=== PATIENT | male | born 1945 | race Caucasian/White ===

== ENCOUNTER → 2017-01-12 | Outpatient (CLI) | payer OTHER | LOC: FIMAGING 17:25 | PROVIDERS: ATTEND Internal Medicine | DX: N20.0 Calculus of kidney (principal); K59.00 Constipation, unspecified ==

== ENCOUNTER 2017-05-18 20:46 | Observation (INO) | payer OTHER ==
--- NOTE | 2017-05-18 20:55 | CPEKG ---
Heart Rate: 51 RR Interval: 1176 P-R Interval: 204 QRSD Interval: 100 QT Interval: 440 QTC Interval: 406 P [place]: 6 QRS [place]: 51 T Wave [place]: 52 EKG Severity - BORDERLINE ECG - EKG Impression: SINUS RHYTHM EKG Impression: BORDERLINE INFERIOR Q WAVES Electronically Signed By: Lily Diaz 19-May-2017 00:29:45
--- NOTE | 2017-05-18 20:59 | EDPHY ---
HPI/HX/ROS/PE/MDM Narrative: CHIEF COMPLAINT: Chest pain HISTORY OF PRESENT ILLNESS: This patient is a 71 year old male complaining of chest pain onset 30 minutes prior to arrival. He states "this is either the worst heartburn I've ever had or something else". The discomfort began while he was reading a book. It is located across the base of his chest, and is sharp and stabbing. He rates his initial discomfort at 7/10 in severity. This has resolved to 5/10 at this time. He endorses some pain at the right side of his neck, and feels he is breathing more shallowly than usual. He does not feel short of breath at rest. He felt lightheaded, but denies any syncope. He has never had similar symptoms in the past. No history of heartburn. He denies history of CAD, stent placements, or other cardiac surgery. No personal history of hypertension, hyperlipidemia, diabetes. Family history positive for CO in father at age 72. The patient does take a preventative daily 81mg aspirin. No fever, chills, palpitations, vomiting , diarrhea, urinary complaints, headache. REVIEW OF SYSTEMS: Aside from elements discussed in the HPI, a comprehensive 10-point review of systems was reviewed and is negative. PAST MEDICAL HISTORY: Kidney stones. Sleep apnea. 81mg ASA and multivitamin daily. SOCIAL HISTORY: Former smoker, quit 30 years ago. Friends at bedside. Lives in [place]. Retired. VITAL SIGNS: Reviewed by me GENERAL: Well-developed, well-nourished, resting comfortably in no respiratory distress. HEENT: Atraumatic. Eyes: No icterus, no injection. Mouth: moist mucous membranes. No erythema or lesions. Neck: supple with no adenopathy. LUNGS: Clear to auscultation bilaterally, no wheezes, rhonchi or rales. CARDIAC: Regular rate and rhythm, no rubs, murmurs or gallops. ABDOMEN: Epigastric and right upper quadrant tenderness. Soft, nondistended, bowel sounds normal. BACK: No CVA tenderness. EXTREMITIES: No trauma. No edema. Range of motion is normal throughout. NEURO: Alert and oriented, grossly nonfocal. SKIN: Warm and dry, no rash. PSYCHIATRIC: Normal mentation, no agitation. Portions of this note were transcribed by a medical fee clerk. I personally performed a history, physical exam, medical decision making, and confirmed accuracy of information the transcribed note. ED Course: 71 y/o male presents with chest pain onset thirty minutes prior to arrival. Exam reveals epigastric and right upper quadrant tenderness. Plan for chest x- ray, EKG, labs including CBC, chemistries, troponin, liver/lipase. Plan to administer 40mg IV Protonix. 21:35 Reviewed chest x-ray. Diffuse interstitial markings. Laboratory studies unremarkable. Troponin negative. 22:10 Reassessed patient. He is feeling mildly better following Protonix administration, but continues to lie in bed holding his upper right abdominal region. Plan for CT abdomen/pelvis for further evaluation. Plan to admit for further evaluation. 22:[address] Sevilla, radiologist. CT negative for acute processes. Evidence of constipation. 22:[address] Alberto, hospitalist. He accepts admission for cardiac r/o vs GI. MDM: After history and physical examination, the differential for chest pain was considered, including but not limited to, myocardial ischemia, acute coronary syndrome, pulmonary embolus, chest wall pain, pleural inflammation and pulmonary infectious causes. After obtaining the patient's history and performing an examination, differential diagnosis considered included but was not limited to appendicitis, cholecystitis, gastritis, pancreatitis, kidney stones, urinary tract infections and other causes. - Data Points Imaging Results: Imaging Impressions Chest X-Ray 05/18/17 21:07 Impression: Hypoventilation and bibasilar atelectasis. Otherwise negative. Imaging: I viewed and interpreted images myself Laboratory Results: Laboratory Results 05/18/17 20:55 05/18/17 20:55 05/18/17 05/18/17 20:55 20:55 WBC 5.68 10^3/uL 10^3/uL (3.80-9.50) RBC 5.24 10^6/uL 10^6/uL (4.40-6.38) Hgb 16.6 g/dL g/dL (13.7-17.5) Hct 49.2 % % (40.0-51.0) MCV 93.9 fL fL (81.5-99.8) MCH 31.7 pg pg (27.9-34.1) MCHC 33.7 g/dL g/dL (32.4-36.7) RDW 12.1 % % (11.5-15.2) Plt Count 198 10^3/uL 10^3/uL (150-400) MPV 10.9 fL fL (8.7-11.7) Neut % (Auto) 52.5 % % (39.3-74.2) Lymph % (Auto) 31.3 % % (15.0-45.0) [place] % (Auto) 9.9 % % (4.5-13.0) Eos % (Auto) 5.1 % % (0.6-7.6) Baso % (Auto) 1.2 % % (0.3-1.7) Nucleat RBC Rel Count 0.0 % % (0.0-0.2) Absolute Neuts (auto) 2.98 10^3/uL 10^3/uL (1.70-6.50) Absolute Lymphs (auto) 1.78 10^3/uL 10^3/uL (1.00-3.00) Absolute Monos (auto) 0.56 10^3/uL 10^3/uL (0.30-0.80) Absolute Eos (auto) 0.29 10^3/uL 10^3/uL (0.03-0.40) Absolute Basos (auto) 0.07 10^3/uL 10^3/uL (0.02-0.10) Absolute Nucleated RBC 0.00 10^3/uL 10^3/uL (0-0.01) Immature Gran % 0.0 % % (0.0-1.1) Immature Gran # 0.00 10^3/uL 10^3/uL (0.00-0.10) Sodium 139 mEq/L mEq/L (135-145) Potassium 4.1 mEq/L mEq/L (3.5-5.2) Chloride 102 mEq/L mEq/L (97-110) Carbon Dioxide 22 mEq/l mEq/l (22-31) Anion Gap 15 mEq/L mEq/L (8-16) BUN 20 mg/dL mg/dL (7-23) Creatinine 0.9 mg/dL mg/dL (0.7-1.3) Estimated GFR > 60 Glucose 96 mg/dL mg/dL (70-100) Calcium 9.7 mg/dL mg/dL (8.5-10.4) Total Bilirubin 0.9 mg/dL mg/dL (0.1-1.4) Conjugated Bilirubin 0.5 mg/dL mg/dL (0.0-0.5) Unconjugated Bilirubin 0.4 mg/dL mg/dL (0.0-1.1) AST 31 IU/L IU/L (17-59) ALT 21 IU/L IU/L (21-72) Alkaline Phosphatase 80 IU/L IU/L (38-126) Troponin I < 0.012 ng/mL ng/mL (0.000-0.034) Total Protein 7.6 g/dL g/dL (6.3-8.2) Albumin 4.5 g/dL g/dL (3.5-5.0) Lipase 126 IU/L IU/L (23-300) Medications Given: Discontinued Medications Pantoprazole Sodium (Protonix) 40 mg IVP EDNOW ONE Stop: 05/18/17 21:37 Last Admin: 05/18/17 21:41 Dose: 40 mg General Time Seen by Provider: 05/18/17 20:51 Initial Vital Signs: Initial Vital Signs Temperature (C) 36.4 C 05/18/17 20:52 Heart Rate 52 L 05/18/17 20:52 Respiratory Rate 16 05/18/17 20:52 Blood Pressure 177/101 H 05/18/17 20:52 O2 Sat (%) 97 05/18/17 20:52 O2 Delivery Mode Room Air Allergies/Adverse Reactions: No Known Allergies Allergy (Verified 08/10/15 12:58) Home Medications: Medication Instructions Recorded Aspirin [Aspirin 81mg (*)] 81 mg PO DAILY 03/30/15 Herbals/Supplements -Info Only 1 ea PO DAILY 08/10/15 Multivitamins [Multivitamin (*)] 1 each PO DAILY 08/10/15 Departure - Departure Disposition: [facility] Acute Clinical Impression: Epigastric pain, Nausea, Lightheadedness Condition: Fair Report Scribed for: Lily Diaz Report Scribed by: Lima Perez Date of Report: 05/18/17 Time of Report: 20:59
[2017-05-18 21:13] LABS: PLATELET COUNT 198 10^3/uL (150-400)
[2017-05-18] MEDS ORDERED: PANTOPRAZOLE SODIUM 40 MG VIAL IVP ONE (21:36)
[2017-05-18] MEDS ORDERED: IOPAMIDOL (ISOVUE-300) 100 ML BTL ONE (22:13)
[2017-05-18] MEDS ORDERED: ONDANSETRON 4 MG/2 ML VIAL IVP PRN (22:44)
[2017-05-18] MEDS ORDERED: ONDANSETRON DISINTEGRATING 4 MG TAB PO PRN (22:44)
[2017-05-18] MEDS ORDERED: ACETAMINOPHEN 325 MG TAB PO PRN (22:44)
--- NOTE | 2017-05-18 23:47 | PDGENHP ---
History and Physical - Chief Complaint Abdominal pain - History of Present Illness 71 yo M w/ no significant PMHx presents with abdominal pain. Patient was sitting at his computer after dinner when he noticed sudden onset, severe abdominal pain. This spread from LUQ to RUQ and lasted about 15-20 minutes. Pain remained somewhat until receiving IV PPI in the ED. He denies associated symptoms or radiation of pain. He has no cardiac history and has no anginal symptoms at baseline. He had a normal nuclear stress study in 2016. At the time of my evaluation patient is comfortable. ED work-up has been unremarkable. Of note, he takes NSAIDs daily for MSK pain. History Information - Allergies/Home Medication List Allergies/Adverse Reactions: No Known Allergies Allergy (Verified 08/10/15 12:58) Home Medications: Aspirin [Aspirin 81mg (*)] 81 mg PO DAILY 03/30/15 [Last Taken 08/10/15] Herbals/Supplements -Info Only 1 ea PO DAILY 08/10/15 [Last Taken Unknown] Multivitamins [Multivitamin (*)] 1 each PO DAILY 08/10/15 [Last Taken 08/09/15] I have personally reviewed and updated: family history, medical history - Past Medical History no pertinent PMH - Family History Positive for: CAD (Father had GA in his 70s) - Social History Smoking Status: Former smoker Review of Systems Review of Systems: ROS: 10pt was reviewed & negative except for what was stated in HPI & below Physical Exam Physical Exam: Temp Pulse Resp BP Pulse Ox 36.9 C 51 L 12 128/72 H 94 05/18/17 23:33 05/18/17 23:33 05/18/17 23:33 05/18/17 23:33 05/18/17 23:33 Constitutional: no apparent distress, not in pain Eyes: PERRL, EOMI Ears, Nose, Mouth, Throat: moist mucous membranes, no oral mucosal ulcers Cardiovascular: regular rate and rhythym, no murmur, rub, or gallop Respiratory: no respiratory distress, clear to auscultation Gastrointestinal: normoactive bowel sounds, soft, non-tender abdomen Skin: warm, normal color Musculoskeletal: full muscle strength, no muscle tenderness Neurologic: AAOx3, CN II-XII Intact Psychiatric: interacting appropriately, not anxious Lab Data & Imaging Review 05/18/17 20:55 05/18/17 20:55 WBC 5.68 10^3/uL (3.80-9.50) 05/18/17 20:55 RBC 5.24 10^6/uL (4.40-6.38) 05/18/17 20:55 Hgb 16.6 g/dL (13.7-17.5) 05/18/17 20:55 Hct 49.2 % (40.0-51.0) 05/18/17 20:55 MCV 93.9 fL (81.5-99.8) 05/18/17 20:55 MCH 31.7 pg (27.9-34.1) 05/18/17 20:55 MCHC 33.7 g/dL (32.4-36.7) 05/18/17 20:55 RDW 12.1 % (11.5-15.2) 05/18/17 20:55 Plt Count 198 10^3/uL (150-400) 05/18/17 20:55 MPV 10.9 fL (8.7-11.7) 05/18/17 20:55 Neut % (Auto) 52.5 % (39.3-74.2) 05/18/17 20:55 Lymph % (Auto) 31.3 % (15.0-45.0) 05/18/17 20:55 [place] % (Auto) 9.9 % (4.5-13.0) 05/18/17 20:55 Eos % (Auto) 5.1 % (0.6-7.6) 05/18/17 20:55 Baso % (Auto) 1.2 % (0.3-1.7) 05/18/17 20:55 Nucleat RBC Rel Count 0.0 % (0.0-0.2) 05/18/17 20:55 Absolute Neuts (auto) 2.98 10^3/uL (1.70-6.50) 05/18/17 20:55 Absolute Lymphs (auto) 1.78 10^3/uL (1.00-3.00) 05/18/17 20:55 Absolute Monos (auto) 0.56 10^3/uL (0.30-0.80) 05/18/17 20:55 Absolute Eos (auto) 0.29 10^3/uL (0.03-0.40) 05/18/17 20:55 Absolute Basos (auto) 0.07 10^3/uL (0.02-0.10) 05/18/17 20:55 Absolute Nucleated RBC 0.00 10^3/uL (0-0.01) 05/18/17 20:55 Immature Gran % 0.0 % (0.0-1.1) 05/18/17 20: Immature Gran # 0.00 10^3/uL (0.00-0.10) 05/18/17 20:55 Sodium 139 mEq/L (135-145) 05/18/17 20:55 Potassium 4.1 mEq/L (3.5-5.2) 05/18/17 20:55 Chloride 102 mEq/L (97-110) 05/18/17 20:55 Carbon Dioxide 22 mEq/l (22-31) 05/18/17 20:55 Anion Gap 15 mEq/L (8-16) 05/18/17 20:55 BUN 20 mg/dL (7-23) 05/18/17 20:55 Creatinine 0.9 mg/dL (0.7-1.3) 05/18/17 20:55 Estimated GFR > 60 05/18/17 20:55 Glucose 96 mg/dL (70-100) 05/18/17 20:55 Calcium 9.7 mg/dL (8.5-10.4) 05/18/17 20:55 Total Bilirubin 0.9 mg/dL (0.1-1.4) 05/18/17 20:55 Conjugated Bilirubin 0.5 mg/dL (0.0-0.5) 05/18/17 20:55 Unconjugated Bilirubin 0.4 mg/dL (0.0-1.1) 05/18/17 20:55 AST 31 IU/L (17-59) 05/18/17 20:55 ALT 21 IU/L (21-72) 05/18/17 20:55 Alkaline Phosphatase 80 IU/L (38-126) 05/18/17 20:55 Troponin I < 0.012 ng/mL (0.000-0.034) 05/18/17 20:55 Total Protein 7.6 g/dL (6.3-8.2) 05/18/17 20:55 Albumin 4.5 g/dL (3.5-5.0) 05/18/17 20:55 Lipase 126 IU/L (23-300) 05/18/17 20:55 Imaging Review: Imaging Impressions Chest X-Ray 05/18/17 21:07 Impression: Hypoventilation and bibasilar atelectasis. Otherwise negative. Abdomen CT 05/18/17 22:11 Impression: 1. No pneumoperitoneum or localized intraabdominal process to explain upper abdominal pain. 2. Constipation. No obstruction or adynamic ileus. 3. Normal appendix. 4. Left nephrolithiasis. No obstructing ureteral calculi. Findings discussed Latisha the scribe working with Emergency Department physician Lily Diaz M.D., on May 18, 2017 at 2247. Visualized and Interpreted Chest x-ray results: Yes Chest X-Ray results: no infiltrate Visualized and Interpreted EKG results: Yes EKG Interpretation: Positive for: normal sinsus rhythm Assessment & Plan Assessment: 71 yo M w/ no significant PMHx presents with abdominal pain. Plan: 1. Abdominal pain - Situation seems most consistent with GI etiology: PUD v gastritis, etc. Patient takes NSAIDs daily, which puts him at risk for PUD. Pain improved significantly with PPI in the ED. Laboratory work-up and imaging, including CT, are unremarkable. Troponin and ECG without evidence of cardiac involvement. - Admit for observation - Start daily PPI - Counseled on avoiding NSAIDs - Basic ACS rule out with telemetry monitoring and trending of cardiac enzymes. I do not feel he needs inpatient risk stratification as he had a normal nuclear stress study in 2016 and has HEART score of only 3 denoting low risk Diet - Regular Code - Full Ppx - LMWH Dispo - Admit to observation status
[2017-05-19 05:41] LABS: PLATELET COUNT 182 10^3/uL (150-400)
[2017-05-19 08:02] VITALS: BP 120/71; PULSE 57; RESP 16; TEMP 97.6; O2SAT 95
[2017-05-19] MEDS ORDERED: FLU VACC QS 2017-18 (3YR+)/PF 0.5 ML SYR (FLUARIX QUAD) IM ONE ×2 (08:56→11:30)
[2017-05-19] MEDS ORDERED: ENOXAPARIN 40 MG/0.4 ML SYR SC SCH (09:00)
[2017-05-19] MEDS ORDERED: PANTOPRAZOLE SODIUM 40 MG TAB PO SCH (09:00)
--- NOTE | 2017-05-19 10:18 | HOSPPROG ---
Hospitalist Progress Note Assessment/Plan: Patient is a 71-year-old male who presented the emergency room with abdominal pain. I reviewed his laboratory workup and imaging and CT scan of the abdomen. Today is my 1st encounter with the patient. Chart reviewed. * abdominal pain -could be related to gastritis and constipation -he takes NSAIDs frequently and this may be 1 of the causes -started on a PPI -coronary syndrome ruled out. Cardiac enzymes x2 are negative. He had normal nuclear stress test in 2016 -pain has resolved -tele; sinus rhythm, sinus nathan *bradycardia -patient is fit, not symptomatic *Plan: dc home on PPI Subjective: [place] is feeling much better today, no complaints, eating and drinking well. Objective: Vital Signs Temp Pulse Resp BP Pulse Ox 36.4 C 57 L 16 120/71 95 05/19/17 08:00 05/19/17 08:00 05/19/17 08:00 05/19/17 08:00 05/19/17 08:00 Laboratory Results 05/19/17 04:31 05/19/17 04:31 - Physical Exam Constitutional: no apparent distress, appears nourished, not in pain Eyes: PERRL Ears, Nose, Mouth, Throat: hearing normal Cardiovascular: regular rate and rhythym, bradycardia Respiratory: no respiratory distress Gastrointestinal: normoactive bowel sounds, soft, non-tender abdomen Skin: warm Musculoskeletal: full muscle strength Neurologic: AAOx3 Psychiatric: interacting appropriately ICD10 Worksheet Patient Problems: Problems Problem Status Onset Epigastric pain Acute Lightheadedness Acute Nausea Acute Chest pain Acute Lower back pain Acute Nondisplaced fracture of right acetabulum Acute
--- NOTE | 2017-05-19 11:03 | GDS ---
[f rep st] DISCHARGE SUMMARY DISCHARGE DIAGNOSIS: 1. Abdominal pain. 2. Bradycardia. Briefly, the patient is a 71-year-old male who presented to the emergency room with abdominal pain. Lab work and CT scan of the abdomen showed nothing acute. Today, his abdominal pain has resolved after starting a PPI. I suspect his pain may be related to taking NSAIDs frequently for back pain. Recommending to hold these until he further follows up with his primary care provider. HOSPITAL COURSE: 1. Abdominal pain. Could be related to gastritis, possible ulcer and constipation. His symptoms have resolved with initiation of a PPI. Will continue this. Coronary syndrome was ruled out. His cardiac enzymes are negative. Reviewed his EKG and telemetry. He has been in sinus rhythm to sinus bradycardia. 2. Bradycardia. He is a very fit gentleman. He is not symptomatic. DISCHARGE CONDITION: Stable. Blood pressure is 120/71, heart rate is 57, respiratory rate is 16, O2 saturations on room air 95%, temperature 36.4 Celsius. MEDICATIONS AT DISCHARGE: Please see the EMR. DISCHARGE INSTRUCTIONS: 1. Recommend that he hold aspirin for week and hold NSAIDs in general for the next 2 weeks. 2. To take Protonix for the next 30 days. 3. Follow up with Dr. Amato in regard to when to resume his NSAIDs and aspirin. /[id number]/MODL MTDD
== END 2017-05-19 12:25 | disposition home or self-care (01) ==
LOC: F3E 23:22
PROVIDERS: ADMIT Student in an Organized Health Care Education/Training Program; ATTEND Student in an Organized Health Care Education/Training Program
DX: R10.9 Unspecified abdominal pain (principal); R00.1 Bradycardia, unspecified; Z87.891 Personal history of nicotine dependence
CPT/HCPCS: 71045; 74177; 90686; 93005; G0008; G0378; Q9967

== ENCOUNTER → 2017-09-12 | Outpatient (CLI) | payer OTHER | LOC: FIMAGING 10:05 | PROVIDERS: ATTEND Internal Medicine | DX: M54.42 Lumbago with sciatica, left side (principal); M48.07 Spinal stenosis, lumbosacral region; M53.87 Other specified dorsopathies, lumbosacral region ==

== ENCOUNTER → 2017-11-06 | Outpatient (CLI) | payer OTHER ==
[~2017-11-06] MED LIST: IOPAMIDOL (ISOVUE-300) 150 ML BTL ONE
== END ==
LOC: FIMAGING 09:03
PROVIDERS: ATTEND Internal Medicine
DX: N20.0 Calculus of kidney (principal); N40.0 Benign prostatic hyperplasia without lower urinary tract symptoms; K76.89 Other specified diseases of liver
CPT/HCPCS: 74178; Q9967